=== PATIENT | female | born 1975 | race African-American/Black ===

== ENCOUNTER 2021-07-22 13:40 | Inpatient (IN) | payer BC ==
[2021-07-22 14:39] LABS: #Eosinphils 0.1 thou/uL (0.0-0.7); #Lymphocytes 1.4 thou/uL (1.20-3.40); #Monocytes 0.6 thou/uL (0.11-0.59); #Neutrophils 1.9 thou/uL (1.40-6.50); %Basophils 1.2 % (0.0-1.0); %Eosinophils 2.7 % (0.0-10.0); %Lymphocytes 35.3 % (21.0-51.0); %Monocytes 13.9 % (0.0-10.0); %Neutrophils 46.9 % (42.0-75.0); Hemoglobin 13.2 g/dL (12.0-16.0); Mean Corpuscular HGB CONC 33.4 g/dL (32.0-36.0); Mean Corpuscular Hemoglobin 29.1 pg (27.0-31.0); Mean Platelet Volume 8.9 fL (7.4-10.4); Platelet Count 248 thou/uL (130-400); RBC Distribution Width 12.6 % (11.5-14.5); Red Blood Cell (RBC) Count 4.54 mill/uL (4.20-5.40)
[2021-07-22 14:56] LABS: PTT 42.6 sec (22.9-36.1)
[2021-07-22 15:12] LABS: ALT (SGPT) 13 U/L (8-55); Albumin 4.3 g/dL (3.5-5.0); Alkaline Phosphatase 60 U/L (40-110); Anion Gap 15 mmol/L (10-20); BUN (Urea Nitrogen) 33 mg/dL (7.0-18.7); Bilirubin, Total 0.9 mg/dL (0.2-1.2); Calc. Creatinine Clearance 0 mL/min (70-130); Calcium 9.8 mg/dL (7.8-10.44); Carbon Dioxide 25 mmol/L (22-29); Chloride 103 mmol/L (98-107); Globulin 3.3 g/dL (2.4-3.5); Glucose 81 mg/dL (70-105); Potassium 4.2 mmol/L (3.5-5.1); Protein, Total 7.6 g/dL (6.0-8.3); Sodium 139 mmol/L (136-145)
[2021-07-22 15:25] LABS: CRP (Inflammatory) Less than 0.50 mg/dL (= or < 0.5); Magnesium 2.3 mg/dL (1.6-2.6)
[2021-07-22 15:26] LABS: AST (SGOT) 20 U/L (5-34)
[2021-07-22] MEDS ORDERED: hydrALAZINE 20 MG/ML VIAL ONE ×2 (17:16→17:45)
[2021-07-22] MEDS ORDERED: hydrALAZINE 20 MG/ML VIAL SLOW IVP PRN (18:58)
[2021-07-22] MEDS ORDERED: Enoxaparin Sodium 30 MG/0.3 ML SYRINGE SC SCH (19:00)
[2021-07-22] MEDS ORDERED: Labetalol HCl 100 MG/20 ML VIAL SLOW IVP PRN (19:14)
[2021-07-22] MEDS ORDERED: Labetalol HCl 100 MG/20 ML VIAL ONE (19:23)
[2021-07-22] MEDS: Carvedilol 6.25 MG TAB PO SCH (20:40)
[2021-07-22 20:59] VITALS: BMI 30.9
[2021-07-22 21:15] LABS: Amphetamine Not Detected (NotDetected); Barbiturates Screen Not Detected (NotDetected); Benzodiazepine Screen Not Detected (NotDetected); Cocaine Metabolite Screen Not Detected (NotDetected); Methadone Not Detected (NotDetected); Methamphetamine Not Detected (NotDetected); Opiate Screen Not Detected (NotDetected); Oxycodone Screen Not Detected (NotDetected); Phencyclidine (PCP) Not Detected (NotDetected); THC/Cannabinoid Screen Not Detected (NotDetected); Tricyclic Screen Not Detected (NotDetected)
[2021-07-22 21:51] LABS: Hemoglobin A1c 5.2 % (4.0-6.0)
[2021-07-23 05:36] LABS: #Eosinphils 0.1 thou/uL (0.0-0.7); #Lymphocytes 1.8 thou/uL (1.20-3.40); #Monocytes 0.6 thou/uL (0.11-0.59); #Neutrophils 3.3 thou/uL (1.40-6.50); %Basophils 0.6 % (0.0-1.0); %Lymphocytes 31.5 % (21.0-51.0); Hemoglobin 13.5 g/dL (12.0-16.0); Mean Corpuscular HGB CONC 32.8 g/dL (32.0-36.0); Mean Corpuscular Hemoglobin 28.7 pg (27.0-31.0); Mean Corpuscular Volume 87.3 fL (78.0-98.0); Platelet Count 258 thou/uL (130-400); White Blood Cell (WBC) Count 5.7 thou/uL (4.8-10.8)
[2021-07-23 05:52] LABS: Anion Gap 20 mmol/L (10-20); BUN (Urea Nitrogen) 37 mg/dL (7.0-18.7); Calc. Creatinine Clearance 37 mL/min (70-130); Calcium 10.1 mg/dL (7.8-10.44); Carbon Dioxide 23 mmol/L (22-29); Cardiac Risk 4.5 (Less than 4.5); Chloride 101 mmol/L (98-107); Cholesterol 302 mg/dl (< 200 Desired); Glucose 89 mg/dL (70-105); HDL Cholesterol 67 mg/dL (>60 Neg Risk); LDL Cholesterol, Calculated 212 mg/dL; Potassium 3.8 mmol/L (3.5-5.1); Sodium 140 mmol/L (136-145); Triglycerides 116 mg/dL (Less than 150)
[2021-07-23] MEDS ORDERED: Amlodipine 10 MG TAB PO SCH (09:00)
[2021-07-23] MEDS: Carvedilol 6.25 MG TAB PO SCH ×2 (09:27→20:42)
[2021-07-23] MEDS ORDERED: Dextrose 5% in Water 1,000 ML IV PRN (11:38)
[2021-07-23] MEDS ORDERED: Dextrose 50% Abboject 50 ML SYRINGE SLOW IVP PRN (11:38)
[2021-07-23] MEDS ORDERED: HumaLOG 300 UNITS/3 ML VIAL SC PRN ×3 (11:38→17:55)
[2021-07-23] MEDS ORDERED: METHYLPREDNISOLONE SOD SUCC IVPB SCH (12:00)
[2021-07-23] MEDS ORDERED: SODIUM CHLORIDE 0.9% IVPB SCH (12:00)
[2021-07-23] MEDS: hydrALAZINE 20 MG/ML VIAL SLOW IVP PRN ×2 (12:14→16:56)
[2021-07-23 12:59] LABS: SARS-CoV-2 PCR by NAA Not Detected (NotDetected)
[2021-07-23 16:43] LABS: CSF Source CSF; Clarity Clear (Clear); Tube # 4
[2021-07-23 16:46] LABS: CSF RBC Count - Manual 2 /cu.mm (None Seen); CSF WBC/NonHematics Count-Man 0 /cu.mm (0-5)
[2021-07-23 17:07] LABS: CSF, Glucose 59 mg/dl (40-70); CSF, Protein 30 mg/dL (15-40)
[2021-07-23] MEDS: SODIUM CHLORIDE 0.9% IVPB SCH (17:31)
[2021-07-23] MEDS: METHYLPREDNISOLONE SOD SUCC IVPB SCH (17:31)
[2021-07-23 18:39] LABS: Creatinine, Urine Less than 20.00 mg/dL (47-110); Protein, Urine Random Quant 37 mg/dL (1-14)
[2021-07-23] MEDS: NIFEdipine XL 60 MG TAB PO SCH (20:42)
[2021-07-23] MEDS: Atorvastatin Calcium 40 MG TAB PO SCH (20:43)
[2021-07-23] MEDS ORDERED: Enoxaparin Sodium 30 MG/0.3 ML SYRINGE SC SCH (21:00)
[2021-07-24] MEDS: Carvedilol 6.25 MG TAB PO SCH ×2 (09:31→21:42)
[2021-07-24] MEDS: NIFEdipine XL 60 MG TAB PO SCH ×2 (09:31→21:42)
[2021-07-24] MEDS: SODIUM CHLORIDE 0.9% IVPB SCH (17:59)
[2021-07-24] MEDS: METHYLPREDNISOLONE SOD SUCC IVPB SCH (17:59)
[2021-07-24] MEDS: Atorvastatin Calcium 40 MG TAB PO SCH (21:42)
[2021-07-25] MEDS ORDERED: Carvedilol 6.25 MG TAB PO SCH (09:00)
[2021-07-25] MEDS: NIFEdipine XL 60 MG TAB PO SCH (09:24)
[2021-07-25] MEDS ORDERED: SODIUM CHLORIDE 0.9% IVPB SCH (14:00)
[2021-07-25] MEDS ORDERED: METHYLPREDNISOLONE SOD SUCC IVPB SCH (14:00)
[2021-07-25 15:53] VITALS: BP 168/84; TEMP 97.6
[2021-07-28 15:14] LABS: CSF IgG Index 0.5 (0.0-0.7); CSF IgG Synthesis Rate -2.8 mg/day (-9.9 TO +3.3); IgG/Alb CSF 0.11 (0.00-0.25)
== END 2021-07-25 17:30 | disposition home or self-care (01) | DRG 74 ==
LOC: ERS 13:40 → ERHOLD 17:07 → 2NO 20:19 → OBSVTOIN 07-23 12:07
PROVIDERS: ADMIT Family Medicine; ATTEND Family Medicine
PROC: 009U3ZX Drainage of Spinal Canal, Percutaneous Approach, Diagnostic (ICD-10-PCS; principal; 2021-07-23)
DX: G51.0 Bell's palsy (principal); N17.9 Acute kidney failure, unspecified; N18.4 Chronic kidney disease, stage 4 (severe); Z20.822 Contact with and (suspected) exposure to COVID-19; I16.0 Hypertensive urgency; D63.1 Anemia in chronic kidney disease; G40.909 Epilepsy, unspecified, not intractable, without status epilepticus; I12.9 Hypertensive chronic kidney disease with stage 1 through stage 4 chronic kidney disease, or unspecified chronic kidney disease; Z86.16 Personal history of COVID-19; Z82.49 Family history of ischemic heart disease and other diseases of the circulatory system; Z91.14 Patient's other noncompliance with medication regimen; Z79.899 Other long term (current) drug therapy
CPT/HCPCS: 36415; 36416; 62270; 70450; 70551; 80048; 80053; 80061; 80306; 82040; 82042; 82570; 82784; 82945; 83036; 83735; 83880; 83916; 84156; 84157; 84443; 84484; 85025; 85610; 85652; 85730; 86140; 87070; 87205; 89051; 93005; 93306; 96372; 96374; 96375; 96376; G0378; J0360; J1650; J2930; J3490; U0003; U0005

== ENCOUNTER 2023-06-23 02:36 | Emergency (ER) | payer BC ==
[2023-06-23 04:24] LABS: #Monocytes 0.4 thou/uL (0.11-0.59); #Neutrophils 2.2 thou/uL (1.40-6.50); %Basophils 0.8 % (0.0-1.0); %Eosinophils 1.1 % (0.0-10.0); %Monocytes 10.1 % (0.0-10.0); %Neutrophils 60.7 % (42.0-75.0); Hematocrit 36.4 % (36.0-47.0); Hemoglobin 11.3 g/dL (12.0-16.0); Mean Corpuscular Hemoglobin 27.9 pg (27.0-31.0); Mean Corpuscular Volume 89.9 fl (78.0-98.0); Mean Platelet Volume 10.8 fL (7.4-10.4); Platelet Count 260 10x3/uL (130-400); RBC Distribution Width 15.7 % (11.5-14.5); Red Blood Cell (RBC) Count 4.05 mill/uL (4.20-5.40); White Blood Cell (WBC) Count 3.6 10x3/uL (4.8-10.8)
[2023-06-23 04:53] LABS: ALT (SGPT) 59 U/L (8-55); AST (SGOT) 49 U/L (5-34); Alkaline Phosphatase 59 U/L (40-110); Anion Gap 20 mmol/L (10-20); BUN (Urea Nitrogen) 93 mg/dL (7.0-18.7); Bilirubin, Total 0.7 mg/dL (0.2-1.2); Calc. Creatinine Clearance 0 mL/min (70-130); Calcium 8.7 mg/dL (7.8-10.44); Carbon Dioxide 16 mmol/L (22-29); Chloride 106 mmol/L (98-107); Estimated GFR 6; Globulin 2.6 g/dL (2.4-3.5); Glucose 86 mg/dL (70-105); Potassium 3.9 mmol/L (3.5-5.1); Protein, Total 6.6 g/dL (6.0-8.3); Sodium 138 mmol/L (136-145)
[2023-06-23] MEDS ORDERED: Labetalol HCl 100 MG/20 ML VIAL ONE (05:09)
[2023-06-23] MEDS ORDERED: Iopamidol-370 76% 500 ML MDV (1 ML CHARGE) ONE (10:47)
== END 2023-06-23 08:16 | disposition left against medical advice (07) ==
LOC: ERS 02:36
DX: R06.02 Shortness of breath (principal); I10 Essential (primary) hypertension; I31.39 Other pericardial effusion (noninflammatory); J81.1 Chronic pulmonary edema; J90 Pleural effusion, not elsewhere classified; I12.0 Hypertensive chronic kidney disease with stage 5 chronic kidney disease or end stage renal disease; N18.6 End stage renal disease; Z99.2 Dependence on renal dialysis
CPT/HCPCS: 36415; 71046; 71275; 80053; 85025; 85379; 93005; 96374; Q9967

== ENCOUNTER 2023-09-28 11:48 | Outpatient (CLI) | payer BC | END 2023-09-28 11:49 | disposition home or self-care (01) | LOC: BICRAD 11:48 | PROVIDERS: ATTEND Internal Medicine Nephrology | DX: I12.9 Hypertensive chronic kidney disease with stage 1 through stage 4 chronic kidney disease, or unspecified chronic kidney disease (principal); N18.5 Chronic kidney disease, stage 5 | CPT/HCPCS: 71046 ==